=== PATIENT | male | born 1940 | race Caucasian/White ===

== ENCOUNTER → 2017-03-17 | Outpatient (CLI) | payer MEDICARE, OTHER ==
[~2017-03-17] MED LIST: ASPI-496 PO; CALC625T23 PO; CHOL5000 PO; FOLI0.4T2 PO; GLUC1TAB27 PO; LACT1CAP35 PO; LISI-167 PO; LUTE1CAP PO; MAGN100T6 PO; MAGN400T7 PO; NITR100C PO; POLY17PO5 PO; POTA99TA PO; SAW1CAPS2 PO; UBID1CAP24 PO; VITA1CAP PO
== END | disposition home or self-care (01) ==
LOC: STAR 08:22
PROVIDERS: ATTEND Urology
DX: Z01.818 Encounter for other preprocedural examination (principal); R94.31 Abnormal electrocardiogram [ECG] [EKG]; N20.0 Calculus of kidney
CPT/HCPCS: 93005

== ENCOUNTER 2017-03-28 05:50 | Observation (INO) | payer MEDICARE, OTHER ==
[~2017-03-28] VITALS: Ht 185.4 cm; Wt 83.8 kg
[2017-03-28 06:45] VITALS: BP 130/81
[2017-03-28] MEDS: SODIUM CHLORIDE 0.9% 1,000 ML IV SCH ×2 (07:00→20:40)
[2017-03-28] MEDS ORDERED: CIPROFLOXACIN/PMX 400MG/200ML 200 ML IV ONE (08:30)
[2017-03-28] MEDS ORDERED: LIDOCAINE 1%, 20ML ONE (09:20)
[2017-03-28] MEDS ORDERED: MIDAZOLAM 1 MG/ML, 5ML ONE (09:29)
[2017-03-28] MEDS ORDERED: FENTANYL PF 100 MCG/2ML ONE ×2 (09:29→09:30)
[2017-03-28] MEDS ORDERED: NALOXONE 1 MG/ML, 2ML ONE (09:30)
[2017-03-28] MEDS ORDERED: FLUMAZENIL 0.1 MG/1 ML, 5ML ONE (09:30)
[2017-03-28] MEDS ORDERED: VISIPAQUE 270 MG/ML, 50ML BOTTLE ONE (10:00)
[2017-03-28] MEDS ORDERED: FENTANYL PF 250 MCG/5ML ONE (10:12)
[2017-03-28] MEDS ORDERED: MIDAZOLAM 1 MG/ML, 2ML ONE (10:12)
[2017-03-28] MEDS ORDERED: ROCURONIUM 10 MG/ML ONE (10:42)
[2017-03-28] MEDS ORDERED: NEOSTIGMINE 1 MG/ML, 10ML ONE (10:42)
[2017-03-28] MEDS ORDERED: GENTAMICIN 80 MG/2 ML ONE (10:42)
[2017-03-28] MEDS ORDERED: GLYCOPYRROLATE 0.2MG/1ML ONE (10:42)
[2017-03-28] MEDS ORDERED: PROPOFOL 10 MG/ML, 20ML ONE (10:42)
[2017-03-28] MEDS ORDERED: LABETALOL 5MG/ML, 20ML IV PRN (11:00)
[2017-03-28] MEDS ORDERED: FENTANYL PF 100 MCG/2ML IV PRN (11:00)
[2017-03-28] MEDS ORDERED: ONDANSETRON 2MG/ML, 2ML IVPush PRN (11:00)
[2017-03-28] MEDS ORDERED: PROMETHAZINE 25 MG/ML, 1ML IV PRN (11:00)
[2017-03-28] MEDS ORDERED: HYDROmorphone 1 MG/ML, 1ML IV PRN (11:00)
[2017-03-28] MEDS ORDERED: OXYcodone 5 MG/5 ML ORAL.SOL UDC PO PRN (11:00)
[2017-03-28] MEDS ORDERED: ACETAMINOPHEN 325 MG TABLET PO PRN (11:00)
[2017-03-28] MEDS ORDERED: MEPERIDINE/PF 25MG/0.5ML IVPush PRN (11:00)
[2017-03-28] MEDS ORDERED: hydrALAzine 20 MG/ML, 1ML IV PRN (11:00)
[2017-03-28] MEDS ORDERED: METOCLOPRAMIDE 5 MG/ML, 2ML IV PRN (11:00)
[2017-03-28] MEDS ORDERED: ONDANSETRON 2MG/ML, 2ML IV PRN (13:00)
[2017-03-28] MEDS ORDERED: OMNIPAQUE 350 MG/ML, 50 ML BOTTLE ONE (13:03)
[2017-03-28] MEDS ORDERED: HYDROmorphone 1 MG/ML, 1ML ONE (13:16)
[2017-03-28] MEDS ORDERED: OPIUM/BELLADONNA SUPP.RECT 16.2-30 MG ONE (13:16)
[2017-03-28] MEDS ORDERED: OXYcodone 5 MG/5 ML ORAL.SOL UDC ONE (13:16)
[2017-03-28] MEDS ORDERED: OPIUM/BELLADONNA SUPP.RECT 16.2-30 MG PR ONE (14:00)
[2017-03-28] MEDS ORDERED: METOCLOPRAMIDE 5 MG/ML, 2ML ONE (14:08)
[2017-03-28] MEDS ORDERED: ONDANSETRON 2MG/ML, 2ML ONE (14:08)
[2017-03-28] MEDS ORDERED: PROMETHAZINE 25 MG/ML, 1ML ONE (14:17)
[2017-03-28] MEDS ORDERED: MAGNESIUM CITRATE 300ML ORAL SOL PO PRN (15:00)
[2017-03-28] MEDS: POLYETHYLENE GLYCOL 17 GM PACKET PO SCH (16:00)
[2017-03-28] MEDS: CHOLECALCIFEROL 1,000 UNIT TABLET PO SCH (16:19)
[2017-03-28] MEDS: MAGNESIUM OXIDE 400 MG TABLET PO SCH (16:19)
[2017-03-28] MEDS: LACTOBACILLUS CHEW TABLET PO SCH (16:19)
[2017-03-28] MEDS: OXYcodone/APAP 5/325MG TABLET PO PRN ×2 (17:11→20:40)
[2017-03-28] MEDS: LACTATED RINGERS 1,000 ML IV SCH (17:55)
[2017-03-28 18:42] VITALS: BP 115/70
[2017-03-28 20:39] VITALS: BP 139/79
[2017-03-28] MEDS: LISINOPRIL 10 MG TABLET PO SCH (20:40)
[2017-03-28] MEDS: FOLIC ACID 1 MG TABLET PO SCH (20:40)
[2017-03-29 00:15] VITALS: BP 118/60
[2017-03-29] MEDS: OXYcodone/APAP 5/325MG TABLET PO PRN ×2 (00:28→04:37)
[2017-03-29] MEDS: LACTATED RINGERS 1,000 ML IV SCH (01:01)
[2017-03-29 04:15] VITALS: BP 133/66
[2017-03-29 07:25] VITALS: BP 107/59
[2017-03-29] MEDS: LISINOPRIL 10 MG TABLET PO SCH (08:33)
[2017-03-29] MEDS: FOLIC ACID 1 MG TABLET PO SCH (08:45)
[2017-03-29] MEDS: LACTOBACILLUS CHEW TABLET PO SCH (08:45)
[2017-03-29] MEDS: MAGNESIUM OXIDE 400 MG TABLET PO SCH (08:46)
[2017-03-29] MEDS: CHOLECALCIFEROL 1,000 UNIT TABLET PO SCH (08:46)
[2017-03-29] MEDS: POLYETHYLENE GLYCOL 17 GM PACKET PO SCH (08:46)
[2017-03-29] MEDS: SODIUM CHLORIDE 0.9% 1,000 ML IV SCH (08:48)
== END 2017-03-29 12:06 | disposition home or self-care (01) ==
LOC: OUT 05:50 → ORIP 12:59 → 4NOR 14:36
PROVIDERS: ADMIT Urology; ATTEND Urology
DX: N20.0 Calculus of kidney (principal); N43.0 Encysted hydrocele; R31.1 Benign essential microscopic hematuria; I10 Essential (primary) hypertension; Z87.891 Personal history of nicotine dependence
CPT/HCPCS: 50081; 50433; 74425; 82360; 88300; 96365; 99156; 99157; C1727; C1729; C1751; C1758; C1769; C1894; C2617; C2625; C2627; G0378; J0744; J1170; J2250; J2405; J2550; J2704; J2710; J2765; J3010; J3490; J7120; Q9966; Q9967; J1580; J2310